=== PATIENT | male | born 1990 | race Caucasian/White ===

== ENCOUNTER 2018-05-28 11:25 | Emergency (ER) | payer SELFPAY ==
[2018-05-28 11:31] VITALS: BP 157/95; PULSE 113; RESP 18; TEMP 36.4; O2SAT 98
[2018-05-28] MEDS: Acetaminophen 500 MG TAB 1000 MG PO (11:43)
[2018-05-28] MEDS: Lidocaine 2% Multi-Dose 50 ML VIAL (11:53)
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
== END 2018-05-28 12:30 | disposition home or self-care (01) ==
PROVIDERS: Emergency Provider Student in an Organized Health Care Education/Training Program; PCP Family Medicine
DX: S61.212A Laceration without foreign body of right middle finger without damage to nail, initial encounter (principal); Y04.0XXA Assault by unarmed brawl or fight, initial encounter
CPT/HCPCS: 96372; 99284; 73110; 73130